=== PATIENT | male | born 1985 | race African-American/Black ===

== ENCOUNTER 2020-07-17 01:53 | Emergency (ER) | payer SELFPAY ==
[~2020-07-17] VITALS: Ht 177.8 cm; Wt 79.0 kg
[2020-07-17] MEDS ORDERED: ACET-2708 MT (02:29)
[2020-07-17] MEDS ORDERED: ACETAMINOPHEN 325MG TABLET PO ONE (02:30)
[2020-07-17 02:40] VITALS: BP 122/87
== END 2020-07-17 02:55 | disposition home or self-care (01) ==
LOC: ER 01:53
DX: S30.0XXA Contusion of lower back and pelvis, initial encounter (principal); W18.39XA Other fall on same level, initial encounter; Y93.89 Activity, other specified; Y92.89 Other specified places as the place of occurrence of the external cause; Y99.8 Other external cause status
CPT/HCPCS: 99283